=== PATIENT | male | born 1990 | race African-American/Black ===

== ENCOUNTER 2018-10-01 15:56 | Emergency (ER) | payer MEDICAID, OTHER ==
[~2018-10-01] VITALS: Ht 177.8 cm; Wt 104.3 kg
[2018-10-01 16:13] VITALS: BP 129/72
[2018-10-01] MEDS ORDERED: KETOROLAC TROMETH 60MG/2ML VIAL IM ONE (19:45)
[2018-10-01] MEDS ORDERED: methylPREDNISolone SOD SUCC 125 MG/2 ML VL IM ONE (19:45)
[2018-10-02] MEDS ORDERED: BUDESONIDE (INHALATION) 0.5 MG/2 ML NEB ONE (04:07)
[2018-10-02] MEDS ORDERED: ALBUTEROL SULF 2.5 MG/0.5ML(0.5%) NEB SOLN ONE (04:07)
== END 2018-10-01 20:58 | disposition home or self-care (01) ==
LOC: ER 16:00
DX: S43.402A Unspecified sprain of left shoulder joint, initial encounter (principal); X50.0XXA Overexertion from strenuous movement or load, initial encounter; Y93.61 Activity, american tackle football; Y92.219 Unspecified school as the place of occurrence of the external cause; Y99.8 Other external cause status
CPT/HCPCS: 96372; 99283; J1885; J2930; J7030

== ENCOUNTER 2021-01-27 23:58 | Inpatient (IN) | payer MEDICAID ==
[~2021-01-27] VITALS: Ht 172.7 cm; Wt 103.6 kg
[2021-01-28 03:40] LABS: Basophils # (auto) 0.1 10 ^3/uL (0-0.2); Basophils % (auto) 0.7 % (0.0-2.0); Eosinophils # (auto) 0.1 10 ^3/uL (0-0.8); Eosinophils % (auto) 0.8 % (0.0-7.0); Hematocrit 44.8 % (41.0-53.0); Hemoglobin 14.8 g/dL (13.5-17.5); Lymphocytes # (auto) 1.6 10 ^3/uL (0.4-5.4); Lymphocytes % (auto) 19.3 % (10.0-50.0); Mean Corpuscular Hemoglobin 28.3 pg (28.0-32.0); Mean Corpuscular Hgb Conc. 33.1 g/dL (32.0-36.0); Mean Corpuscular Volume 85.5 fL (80.0-100.0); Monocytes # (auto) 0.5 10 ^3/uL (0-1.3); Monocytes % (auto) 6.3 % (0.0-12.0); Neutrophils % (auto) 72.9 % (37.0-80.0); Nucleated Red Blood Cells % 0.1 %; Platelet Count (auto) 351 10^3/uL (140-450); Red Blood Cells 5.24 10^6/uL (4.5-5.90); Red Cell Distribution Width 14.2 % (11.8-14.3); White Blood Cell 8.2 10^3/uL (4.4-10.8)
[2021-01-28 03:55] LABS: Albumin 3.6 g/dL (3.4-5.0); Anion Gap 7 (5-15); Blood Urea Nitrogen 8 mg/dL (7-18); Calcium 8.5 mg/dL (8.5-10.1); Carbon Dioxide 24 mmol/L (21-32); Chloride 108 mmol/L (98-107); Glucose 103 mg/dL (74-106); Magnesium 2.2 mg/dL (1.6-2.6); Potassium 4.2 mmol/L (3.5-5.1); Sodium 139 mmol/L (136-145)
[2021-01-28 03:57] LABS: BUN/Creatinine Ratio 8.2; GFR African American 115 mL/min; GFR Non-African American 95 mL/min
[2021-01-28 04:02] LABS: Alanine Aminotransferase 36 U/L (16-61); Alkaline Phosphatase 70 U/L (45-117); Aspartate Aminotransferase 18 U/L (15-37); Bilirubin, Total 0.5 mg/dL (0.2-1.0); Total Protein 7.2 g/dL (6.4-8.2)
[2021-01-28] MEDS ORDERED: TETANUS-DIPTH-ACEL PERTUSSIS 0.5ML SYR Tdap IM ONE (04:30)
[2021-01-28] MEDS ORDERED: NITROGLYCERIN 0.4 MG SL TAB SL PRN (06:00)
[2021-01-28] MEDS ORDERED: ONDANSETRON HCL 4 MG/2 ML VIAL IV PRN (06:00)
[2021-01-28] MEDS ORDERED: LIDOCAINE 1% HCL (LOCAL ANESTH.) INJ 20ML MDV ID ONE (06:30)
[2021-01-28 09:54] VITALS: BP 168/93
[2021-01-28] MEDS: HYDROcodone-ACET 5/325MG TAB PO PRN ×3 (11:23→21:08)
[2021-01-28] MEDS: FAMOTIDINE 20 MG TAB PO SCH ×2 (11:23→21:07)
[2021-01-28 11:25] LABS: Amphetamine Screen, Urine NEGATIVE (NEGATIVE); Barbiturate Scree,Urine NEGATIVE (NEGATIVE); Benzodiazephine Screen, Urine NEGATIVE (NEGATIVE); Cannabinoid Screen, Urine POSITIVE (NEGATIVE); Cocaine Screen, Urine NEGATIVE (NEGATIVE)
[2021-01-28 11:35] LABS: Opiate Scree,Urine NEGATIVE (NEGATIVE); Phencyclidine Screen, Urine NEGATIVE (NEGATIVE)
[2021-01-28 13:07] VITALS: BP 132/76
[2021-01-28 16:22] VITALS: BP 123/70
[2021-01-28 22:00] VITALS: BP 104/68
[2021-01-28] MEDS ORDERED: LORazepam 2MG/ML-1ML VIAL IV PRN (22:00)
[2021-01-29] MEDS: HYDROcodone-ACET 5/325MG TAB PO PRN ×2 (04:44→15:08)
[2021-01-29 05:00] VITALS: BP 131/78
[2021-01-29 05:44] LABS: Basophils # (auto) 0 10 ^3/uL (0-0.2); Basophils % (auto) 0.6 % (0.0-2.0); Eosinophils # (auto) 0.1 10 ^3/uL (0-0.8); Eosinophils % (auto) 1.9 % (0.0-7.0); Hematocrit 46.8 % (41.0-53.0); Hemoglobin 15.8 g/dL (13.5-17.5); Lymphocytes # (auto) 2.2 10 ^3/uL (0.4-5.4); Lymphocytes % (auto) 38.3 % (10.0-50.0); Mean Corpuscular Hemoglobin 28.7 pg (28.0-32.0); Mean Corpuscular Hgb Conc. 33.8 g/dL (32.0-36.0); Monocytes # (auto) 0.5 10 ^3/uL (0-1.3); Monocytes % (auto) 9.4 % (0.0-12.0); Neutrophils # (auto) 2.9 10 ^3/uL (1.6-8.6); Neutrophils % (auto) 49.8 % (37.0-80.0); Nucleated Red Blood Cells % 0.1 %; Platelet Count (auto) 336 10^3/uL (140-450); Red Blood Cells 5.51 10^6/uL (4.5-5.90); Red Cell Distribution Width 13.9 % (11.8-14.3); White Blood Cell 5.8 10^3/uL (4.4-10.8)
[2021-01-29 06:02] LABS: Calcium 8.7 mg/dL (8.5-10.1); Potassium 3.9 mmol/L (3.5-5.1)
[2021-01-29] MEDS: MORPHINE SULF INJ 2 MG/ML SYRINGE 1ML IV PRN (08:25)
[2021-01-29 08:41] VITALS: BP 130/83
[2021-01-29] MEDS: FAMOTIDINE 20 MG TAB PO SCH ×2 (10:17→21:56)
[2021-01-29 16:46] VITALS: BP 125/76
[2021-01-29 22:00] VITALS: BP 150/75
[2021-01-30 05:00] VITALS: BP 127/69
[2021-01-30 09:00] VITALS: BP 134/75
[2021-01-30] MEDS: HYDROcodone-ACET 5/325MG TAB PO PRN ×3 (09:08→21:41)
[2021-01-30] MEDS: FAMOTIDINE 20 MG TAB PO SCH ×2 (09:08→21:41)
[2021-01-30] MEDS ORDERED: traMADol HCL 50 MG TAB PO PRN (09:15)
[2021-01-30 13:16] VITALS: BP 140/50
[2021-01-30 16:48] VITALS: BP 123/73
[2021-01-30 21:38] VITALS: BP 125/84
[2021-01-31] MEDS: MORPHINE SULF INJ 2 MG/ML SYRINGE 1ML IV PRN (05:35)
[2021-01-31 05:43] VITALS: BP 120/71
[2021-01-31 09:00] VITALS: BP 115/74
[2021-01-31] MEDS: FAMOTIDINE 20 MG TAB PO SCH ×2 (10:14→22:09)
[2021-01-31] MEDS: HYDROcodone-ACET 5/325MG TAB PO PRN ×2 (12:39→17:48)
[2021-01-31 12:50] VITALS: BP 126/81
[2021-01-31 17:00] VITALS: BP 133/77
[2021-01-31 21:16] VITALS: BP 111/73
[2021-02-01] MEDS: HYDROcodone-ACET 5/325MG TAB PO PRN ×2 (01:37→09:08)
[2021-02-01 04:59] VITALS: BP 121/71
[2021-02-01 08:50] VITALS: BP 120/85
[2021-02-01] MEDS: FAMOTIDINE 20 MG TAB PO SCH ×2 (09:08→21:33)
[2021-02-01] MEDS ORDERED: KETOROLAC TROMETH 30 MG/ML 1ML VIAL IV ONE (10:15)
[2021-02-01 13:00] VITALS: BP 128/74
[2021-02-01] MEDS: SODIUM CHLORIDE 0.9% 1,000 ML IV SCH (15:54)
[2021-02-01 16:55] VITALS: BP 123/71
[2021-02-01] MEDS: KETOROLAC TROMETH 30 MG/ML 1ML VIAL IV PRN (18:47)
[2021-02-01 22:00] VITALS: BP 130/79
[2021-02-01] MEDS: TEMAZEPAM 15 MG CAP PO PRN (22:18)
[2021-02-02] MEDS: SODIUM CHLORIDE 0.9% 1,000 ML IV SCH ×3 (01:48→21:44)
[2021-02-02 05:00] VITALS: BP 129/73
[2021-02-02 05:30] LABS: Basophils # (auto) 0 10 ^3/uL (0-0.2); Basophils % (auto) 0.7 % (0.0-2.0); Eosinophils # (auto) 0.1 10 ^3/uL (0-0.8); Eosinophils % (auto) 2.5 % (0.0-7.0); Hematocrit 43.7 % (41.0-53.0); Hemoglobin 15.2 g/dL (13.5-17.5); Lymphocytes % (auto) 37.1 % (10.0-50.0); Mean Corpuscular Hemoglobin 29.4 pg (28.0-32.0); Mean Corpuscular Hgb Conc. 34.8 g/dL (32.0-36.0); Mean Corpuscular Volume 84.7 fL (80.0-100.0); Monocytes # (auto) 0.6 10 ^3/uL (0-1.3); Monocytes % (auto) 10.5 % (0.0-12.0); Neutrophils # (auto) 2.6 10 ^3/uL (1.6-8.6); Neutrophils % (auto) 49.2 % (37.0-80.0); Nucleated Red Blood Cells % 0.1 %; Platelet Count (auto) 315 10^3/uL (140-450); Red Blood Cells 5.16 10^6/uL (4.5-5.90); Red Cell Distribution Width 13.4 % (11.8-14.3); White Blood Cell 5.4 10^3/uL (4.4-10.8)
[2021-02-02 05:39] LABS: INR 1.07 (0.9-1.15)
[2021-02-02 05:51] LABS: Potassium 4.2 mmol/L (3.5-5.1)
[2021-02-02 05:57] LABS: Albumin 3.3 g/dL (3.4-5.0); BUN/Creatinine Ratio 13.6; Bilirubin, Total 0.4 mg/dL (0.2-1.0); Calcium 8.6 mg/dL (8.5-10.1); Total Protein 6.7 g/dL (6.4-8.2)
[2021-02-02] MEDS ORDERED: MIDAZOLAM HCL 1MG/1ML-2 ML VIAL ONE ×2 (07:22→12:55)
[2021-02-02] MEDS ORDERED: fentaNYL CITRATE 100 MCG/2 ML VL ONE ×2 (07:22→12:55)
[2021-02-02] MEDS ORDERED: LIDOCAINE 2%HCL (LOCAL ANESTH.) INJ 20ML MDV ONE ×2 (07:23→12:33)
[2021-02-02] MEDS: FAMOTIDINE 20 MG TAB PO SCH ×2 (09:28→21:44)
[2021-02-02] MEDS: KETOROLAC TROMETH 30 MG/ML 1ML VIAL IV PRN ×2 (12:01→18:04)
[2021-02-02 13:00] VITALS: BP 121/78
[2021-02-02] MEDS ORDERED: ceFAZolin 1GM/50ML 50 ML IV ONE ×2 (14:00→14:03)
[2021-02-02 16:52] VITALS: BP 129/81
[2021-02-02 22:00] VITALS: BP 119/65
[2021-02-03] MEDS: KETOROLAC TROMETH 30 MG/ML 1ML VIAL IV PRN ×2 (01:50→08:16)
[2021-02-03] MEDS: TEMAZEPAM 15 MG CAP PO PRN (01:56)
[2021-02-03 05:17] VITALS: BP 144/66
[2021-02-03] MEDS: SODIUM CHLORIDE 0.9% 1,000 ML IV SCH (07:45)
[2021-02-03] MEDS: FAMOTIDINE 20 MG TAB PO SCH (08:16)
[2021-02-03 09:00] VITALS: BP 122/81
== END 2021-02-03 13:25 | disposition home or self-care (01) | DRG 201 ==
LOC: EDBD 23:58 → ER 01-28 00:01 → TELE 01-28 05:58 → TELE-WESTW 01-28 11:41
PROVIDERS: ADMIT Nurse Practitioner; ATTEND Family Medicine
PROC: 4A0234Z Measurement of Cardiac Electrical Activity, Percutaneous Approach (ICD-10-PCS; principal; 2021-02-03)
PROC: 0JH632Z Insertion of Monitoring Device into Chest Subcutaneous Tissue and Fascia, Percutaneous Approach (ICD-10-PCS; 2021-02-03)
DX: I49.9 Cardiac arrhythmia, unspecified (principal); R56.9 Unspecified convulsions; S40.011A Contusion of right shoulder, initial encounter; I44.1 Atrioventricular block, second degree; S01.511A Laceration without foreign body of lip, initial encounter; E66.9 Obesity, unspecified; F12.90 Cannabis use, unspecified, uncomplicated; Z20.822 Contact with and (suspected) exposure to COVID-19; W10.9XXA Fall (on) (from) unspecified stairs and steps, initial encounter; F32.9 Major depressive disorder, single episode, unspecified; I10 Essential (primary) hypertension; Z82.3 Family history of stroke; Z82.49 Family history of ischemic heart disease and other diseases of the circulatory system; Z83.3 Family history of diabetes mellitus; Z79.899 Other long term (current) drug therapy; Z79.891 Long term (current) use of opiate analgesic; Z79.01 Long term (current) use of anticoagulants; Y93.89 Activity, other specified; Y92.89 Other specified places as the place of occurrence of the external cause; Y99.8 Other external cause status; Z68.34 Body mass index [BMI] 34.0-34.9, adult
CPT/HCPCS: 36415; 70450; 70551; 71045; 72125; 73030; 80048; 80053; 80307; 83735; 84443; 84484; 85025; 85610; 86850; 86900; 86901; 87426; 90471; 90715; 93005; 93017; 93306; 93886; 95819; 99152; 99153; G0378; J0690; J1885; J2250

== ENCOUNTER 2021-06-27 18:19 | Inpatient (IN) | payer MEDICAID, OTHER ==
[~2021-06-27] VITALS: Ht 172.7 cm; Wt 102.1 kg
[2021-06-27] MEDS ORDERED: ASPirin 81 mg TAB PO ONE (18:30)
[2021-06-27] MEDS ORDERED: MORPHINE SULFATE 4 MG/ML SYR/VIAL IV ONE (18:30)
[2021-06-27 19:00] LABS: Basophils # (auto) 0 10 ^3/uL (0-0.2); Basophils % (auto) 0.6 % (0.0-2.0); Eosinophils # (auto) 0 10 ^3/uL (0-0.8); Eosinophils % (auto) 1.2 % (0.0-7.0); Hematocrit 45.6 % (41.0-53.0); Mean Corpuscular Hemoglobin 27.4 pg (28.0-32.0); Mean Corpuscular Hgb Conc. 32.9 g/dL (32.0-36.0); Mean Corpuscular Volume 83.3 fL (80.0-100.0); Monocytes # (auto) 0.4 10 ^3/uL (0-1.3); Monocytes % (auto) 9.8 % (0.0-12.0); Neutrophils # (auto) 1.7 10 ^3/uL (1.6-8.6); Neutrophils % (auto) 40.4 % (37.0-80.0); Nucleated Red Blood Cells % 0.3 %; Red Blood Cells 5.48 10^6/uL (4.5-5.90); Red Cell Distribution Width 13.6 % (11.8-14.3); White Blood Cell 4.1 10^3/uL (4.4-10.8)
[2021-06-27 19:15] LABS: INR 1.07 (0.9-1.15); Partial Thromboplastin Time 30.3 sec (23.6-33.0)
[2021-06-27 19:20] LABS: Albumin 3.5 g/dL (3.4-5.0); Anion Gap 4 (5-15); Blood Urea Nitrogen 10 mg/dL (7-18); Calcium 8.7 mg/dL (8.5-10.1); Carbon Dioxide 24 mmol/L (21-32); Chloride 111 mmol/L (98-107); Glucose 116 mg/dL (74-106); Magnesium 2.4 mg/dL (1.6-2.6); Potassium 4.1 mmol/L (3.5-5.1); Sodium 139 mmol/L (136-145)
[2021-06-27 19:22] LABS: Alanine Aminotransferase 23 U/L (16-61); Aspartate Aminotransferase 14 U/L (15-37); GFR African American 111 mL/min; GFR Non-African American 91 mL/min
[2021-06-27 19:27] LABS: Alkaline Phosphatase 66 U/L (45-117); Bilirubin, Total 0.8 mg/dL (0.2-1.0)
[2021-06-27] MEDS ORDERED: DOCUSATE SOD 100 MG CAP PO PRN (21:30)
[2021-06-27] MEDS ORDERED: HYDROcodone-ACET 5/325MG TAB PO PRN (21:30)
[2021-06-27] MEDS ORDERED: MORPHINE SULFATE 4 MG/ML SYR/VIAL IV PRN (21:30)
[2021-06-27] MEDS ORDERED: ONDANSETRON HCL 4 MG/2 ML VIAL IV PRN (21:30)
[2021-06-27] MEDS ORDERED: ACETAMINOPHEN 325 MG TAB PO PRN (21:30)
[2021-06-28] MEDS ORDERED: MORPHINE SULFATE INJECTION 2 MG/ML SYRG IV PRN (01:45)
[2021-06-28] MEDS ORDERED: NITROGLYCERIN 0.4 MG SL TAB SL PRN (01:45)
[2021-06-28 07:11] LABS: Albumin 3.5 g/dL (3.4-5.0); Calcium 8.6 mg/dL (8.5-10.1); Potassium 4.1 mmol/L (3.5-5.1)
[2021-06-28 07:15] LABS: Hematocrit 43.3 % (41.0-53.0); Hemoglobin 14.6 g/dL (13.5-17.5); Mean Corpuscular Hemoglobin 28.3 pg (28.0-32.0); Mean Corpuscular Hgb Conc. 33.8 g/dL (32.0-36.0); Mean Corpuscular Volume 83.9 fL (80.0-100.0); Red Blood Cells 5.15 10^6/uL (4.5-5.90); Red Cell Distribution Width 13.5 % (11.8-14.3); White Blood Cell 3.9 10^3/uL (4.4-10.8)
[2021-06-28 07:16] LABS: BUN/Creatinine Ratio 12.6; Bilirubin, Total 0.8 mg/dL (0.2-1.0); Total Protein 6.8 g/dL (6.4-8.2)
[2021-06-28 07:21] LABS: Basophils % (manual) 0 (0.0-2.0); Blast Cells 0; Metamyelocytes % 0; Myelocytes % 0; Promyelocytes % 0
[2021-06-28] MEDS ORDERED: NITROGLYCERIN 0.4 MG SL TAB SL ONE (10:00)
[2021-06-28] MEDS ORDERED: ASPirin 81 mg TAB PO SCH (10:00)
[2021-06-28] MEDS ORDERED: FAMOTIDINE (10MG/ML) 2ML VL IV SCH (10:00)
[2021-06-28 11:38] LABS: Band Neutrophils % (manual) 2; Eosinophils % (manual) 2 (0-7); Lymphocytes % (manual) 49 (10.0-50.0); Monocytes % (manual) 10 (0-12); Reactive Lymphocytes 5
[2021-06-28] MEDS ORDERED: AMIT1TAB35 PO (14:13)
[2021-06-28 15:57] VITALS: BP 133/70
[2021-06-29] MEDS ORDERED: ENOXAPARIN SOD 40 MG/0.4 ML SYRINGE SC SCH (10:00)
[2021-06-29] MEDS ORDERED: FONDAPARINUX SOD 2.5mg/0.5ml SYRINGE SC SCH (10:00)
== END 2021-06-28 17:47 | disposition left against medical advice (07) | DRG 201 ==
LOC: ER 18:21 → TELE 06-28 01:42
PROVIDERS: ADMIT Nurse Practitioner Family; ATTEND Hospitalist
DX: I49.5 Sick sinus syndrome (principal); I21.A1 Myocardial infarction type 2; Z53.29 Procedure and treatment not carried out because of patient's decision for other reasons; Z82.49 Family history of ischemic heart disease and other diseases of the circulatory system; Z83.3 Family history of diabetes mellitus; Z20.822 Contact with and (suspected) exposure to COVID-19; Z91.018 Allergy to other foods
CPT/HCPCS: 36415; 71046; 80053; 80061; 83735; 83880; 84443; 84484; 85007; 85025; 85027; 85379; 85610; 85730; 87426; 93005; 96374; 96375; 96376; G0378; J2405; J3490

== ENCOUNTER 2021-07-09 07:57 | Emergency (ER) | payer MEDICAID ==
[~2021-07-09] VITALS: Ht 172.7 cm; Wt 104.3 kg
[~2021-07-09 07:57] MED LIST: AMIT1TAB35 PO
[2021-07-09 08:29] LABS: Basophils # (auto) 0 10 ^3/uL (0-0.2); Basophils % (auto) 0.9 % (0.0-2.0); Eosinophils # (auto) 0.1 10 ^3/uL (0-0.8); Eosinophils % (auto) 2.1 % (0.0-7.0); Hematocrit 43.9 % (41.0-53.0); Hemoglobin 14.5 g/dL (13.5-17.5); Lymphocytes # (auto) 1.5 10 ^3/uL (0.4-5.4); Lymphocytes % (auto) 35.5 % (10.0-50.0); Mean Corpuscular Hemoglobin 27.9 pg (28.0-32.0); Mean Corpuscular Volume 84.5 fL (80.0-100.0); Monocytes # (auto) 0.3 10 ^3/uL (0-1.3); Monocytes % (auto) 7.2 % (0.0-12.0); Neutrophils # (auto) 2.4 10 ^3/uL (1.6-8.6); Neutrophils % (auto) 54.3 % (37.0-80.0); Nucleated Red Blood Cells % 0.1 %; Red Blood Cells 5.19 10^6/uL (4.5-5.90); Red Cell Distribution Width 14.1 % (11.8-14.3); White Blood Cell 4.4 10^3/uL (4.4-10.8)
[2021-07-09] MEDS ORDERED: ASPirin 81 mg TAB PO ONE (08:30)
[2021-07-09 08:46] LABS: Albumin 3.3 g/dL (3.4-5.0); Anion Gap 7 (5-15); Blood Urea Nitrogen 7 mg/dL (7-18); Calcium 8.4 mg/dL (8.5-10.1); Carbon Dioxide 24 mmol/L (21-32); Chloride 111 mmol/L (98-107); Glucose 105 mg/dL (74-106); Potassium 4.3 mmol/L (3.5-5.1); Sodium 142 mmol/L (136-145)
[2021-07-09 08:48] LABS: Alanine Aminotransferase 87 U/L (16-61); Aspartate Aminotransferase 35 U/L (15-37); BUN/Creatinine Ratio 6.7; GFR African American 106 mL/min; GFR Non-African American 87 mL/min
[2021-07-09 08:53] LABS: Alkaline Phosphatase 61 U/L (45-117); Bilirubin, Total 0.3 mg/dL (0.2-1.0); Total Protein 6.9 g/dL (6.4-8.2)
[2021-07-09 10:14] LABS: Amphetamine Screen, Urine NEGATIVE (NEGATIVE); Barbiturate Scree,Urine NEGATIVE (NEGATIVE); Benzodiazephine Screen, Urine NEGATIVE (NEGATIVE); Cannabinoid Screen, Urine POSITIVE (NEGATIVE); Cocaine Screen, Urine NEGATIVE (NEGATIVE); Opiate Scree,Urine NEGATIVE (NEGATIVE); Phencyclidine Screen, Urine NEGATIVE (NEGATIVE)
[2021-07-09 12:35] VITALS: BP 139/83
== END 2021-07-09 12:40 | disposition home or self-care (01) ==
LOC: ER 07:57
DX: R07.89 Other chest pain (principal); E46 Unspecified protein-calorie malnutrition; Z68.35 Body mass index [BMI] 35.0-35.9, adult; Z79.899 Other long term (current) drug therapy; Z91.018 Allergy to other foods
CPT/HCPCS: 36415; 71046; 80053; 80307; 83735; 84484; 85025; 93005

== ENCOUNTER 2021-09-14 08:51 | Emergency (ER) | payer MEDICAID ==
[~2021-09-14] VITALS: Ht 172.7 cm; Wt 104.3 kg
[2021-09-14 09:26] LABS: Basophils # (auto) 0 10 ^3/uL (0-0.2); Basophils % (auto) 1.3 % (0.0-2.0); Eosinophils # (auto) 0.1 10 ^3/uL (0-0.8); Eosinophils % (auto) 1.7 % (0.0-7.0); Hematocrit 45.2 % (41.0-53.0); Hemoglobin 15.2 g/dL (13.5-17.5); Lymphocytes # (auto) 1.6 10 ^3/uL (0.4-5.4); Lymphocytes % (auto) 53.2 % (10.0-50.0); Mean Corpuscular Hemoglobin 28.1 pg (28.0-32.0); Mean Corpuscular Hgb Conc. 33.7 g/dL (32.0-36.0); Mean Corpuscular Volume 83.6 fL (80.0-100.0); Monocytes # (auto) 0.3 10 ^3/uL (0-1.3); Monocytes % (auto) 8.3 % (0.0-12.0); Neutrophils # (auto) 1.1 10 ^3/uL (1.6-8.6); Neutrophils % (auto) 35.5 % (37.0-80.0); Nucleated Red Blood Cells % 0.3 %; Red Cell Distribution Width 13.4 % (11.8-14.3); White Blood Cell 3.1 10^3/uL (4.4-10.8)
[2021-09-14] MEDS ORDERED: ASPirin 81 mg TAB PO ONE (09:30)
[2021-09-14 09:50] LABS: Albumin 3.9 g/dL (3.4-5.0); Calcium 8.7 mg/dL (8.5-10.1); Potassium 4.5 mmol/L (3.5-5.1)
[2021-09-14 09:55] LABS: BUN/Creatinine Ratio 8.1; Bilirubin, Total 0.4 mg/dL (0.2-1.0); Total Protein 7.6 g/dL (6.4-8.2)
[2021-09-14 10:22] VITALS: BP 112/88
== END 2021-09-14 10:46 | disposition home or self-care (01) ==
LOC: ER 08:51
DX: R07.89 Other chest pain (principal)
CPT/HCPCS: 36415; 71046; 80053; 84484; 85025; 93005

== ENCOUNTER 2022-02-09 07:33 | Emergency (ER) | payer MEDICAID ==
[~2022-02-09] VITALS: Ht 182.9 cm; Wt 99.8 kg
[2022-02-09 10:32] LABS: Basophils # (auto) 0 10 ^3/uL (0-0.2); Basophils % (auto) 0.6 % (0.0-2.0); Eosinophils # (auto) 0.1 10 ^3/uL (0-0.8); Eosinophils % (auto) 1.3 % (0.0-7.0); Hematocrit 46.4 % (41.0-53.0); Hemoglobin 15.2 g/dL (13.5-17.5); Lymphocytes # (auto) 1.6 10 ^3/uL (0.4-5.4); Lymphocytes % (auto) 32.2 % (10.0-50.0); Mean Corpuscular Hgb Conc. 32.7 g/dL (32.0-36.0); Mean Corpuscular Volume 85.5 fL (80.0-100.0); Monocytes # (auto) 0.5 10 ^3/uL (0-1.3); Monocytes % (auto) 9.5 % (0.0-12.0); Neutrophils # (auto) 2.8 10 ^3/uL (1.6-8.6); Neutrophils % (auto) 56.4 % (37.0-80.0); Nucleated Red Blood Cells % 0.1 %; Red Blood Cells 5.43 10^6/uL (4.5-5.90); Red Cell Distribution Width 14.9 % (11.8-14.3)
[2022-02-09 10:43] LABS: Albumin 3.5 g/dL (3.4-5.0); Calcium 9.1 mg/dL (8.5-10.1); Magnesium 2.6 mg/dL (1.6-2.6); Potassium 4.3 mmol/L (3.5-5.1)
[2022-02-09 10:48] LABS: BUN/Creatinine Ratio 10.2; Bilirubin, Total 0.7 mg/dL (0.2-1.0); Total Protein 7.2 g/dL (6.4-8.2)
[2022-02-09 11:55] VITALS: BP 137/80
[2022-02-09] MEDS ORDERED: NAP500T PO (12:58)
[2022-02-09] MEDS ORDERED: KETOROLAC TROMETH 30 MG/ML 1ML VIAL IV ONE (13:00)
== END 2022-02-09 12:48 | disposition home or self-care (01) ==
LOC: ER 07:33 → EDBD 07:33 → ER 12:48
DX: R07.89 Other chest pain (principal); Z86.74 Personal history of sudden cardiac arrest
CPT/HCPCS: 36415; 71045; 80053; 83735; 83880; 84484; 85025; 93005; 96374; 99284; J1885

== ENCOUNTER 2022-05-17 08:47 | Inpatient (IN) | payer MEDICAID ==
[~2022-05-17] VITALS: Ht 175.3 cm; Wt 105.1 kg
[~2022-05-17 08:47] MED LIST changes: +NAP500T PO
[2022-05-17 10:00] LABS: Basophils # (auto) 0 10 ^3/uL (0-0.2); Basophils % (auto) 0.9 % (0.0-2.0); Eosinophils # (auto) 0.1 10 ^3/uL (0-0.8); Eosinophils % (auto) 1.5 % (0.0-7.0); Hemoglobin 15.1 g/dL (13.5-17.5); Lymphocytes # (auto) 1.3 10 ^3/uL (0.4-5.4); Lymphocytes % (auto) 27.7 % (10.0-50.0); Mean Corpuscular Hgb Conc. 31.5 g/dL (32.0-36.0); Mean Corpuscular Volume 85.5 fL (80.0-100.0); Monocytes # (auto) 0.5 10 ^3/uL (0-1.3); Monocytes % (auto) 10.1 % (0.0-12.0); Neutrophils # (auto) 2.8 10 ^3/uL (1.6-8.6); Neutrophils % (auto) 59.8 % (37.0-80.0); Nucleated Red Blood Cells % 0.1 %; Red Blood Cells 5.61 10^6/uL (4.5-5.90); Red Cell Distribution Width 14.2 % (11.8-14.3); White Blood Cell 4.7 10^3/uL (4.4-10.8)
[2022-05-17 10:08] LABS: Albumin 3.9 g/dL (3.4-5.0); Calcium 9.4 mg/dL (8.5-10.1); Potassium 4.5 mmol/L (3.5-5.1)
[2022-05-17 10:14] LABS: BUN/Creatinine Ratio 9.8; Bilirubin, Total 0.8 mg/dL (0.2-1.0)
[2022-05-17] MEDS ORDERED: ASPirin 81 mg TAB PO ONE (14:00)
[2022-05-17] MEDS ORDERED: HYDROcodone-ACET 5/325MG TAB PO PRN (15:15)
[2022-05-17] MEDS ORDERED: ACETAMINOPHEN 325 MG TAB PO PRN (15:15)
[2022-05-17] MEDS ORDERED: DOCUSATE SOD 100 MG CAP PO PRN (15:15)
[2022-05-17] MEDS: SODIUM CHLORIDE 0.9% 1,000 ML IV SCH (15:55)
[2022-05-17] MEDS: MORPHINE SULFATE INJ 2 MG/ml SYRG IV PRN ×2 (15:56→22:50)
[2022-05-17] MEDS ORDERED: MIDAZOLAM HCL 2MG/2ML 2ml VIAL (1mg/ml) IV PRN (20:45)
[2022-05-17 21:11] LABS: Cholesterol 182 mg/dL (< 200); HDL Cholesterol 50 mg/dL (40-59); LDL Cholesterol 120 mg/dL (< 100); Triglycerides 149 mg/dL (< 150)
[2022-05-17 22:02] VITALS: BP 131/72
[2022-05-17 22:02] LABS: Urine Bacteria NONE SEEN /hpf (None Seen); Urine Blood Negative /uL (Negative); Urine Mucus FEW (None Seen); Urine Specific Gravity 1.024 (1.001-1.035); Urine WBC 1 /hpf (0 - 3)
[2022-05-17 22:10] VITALS: BP 131/72
[2022-05-17] MEDS: ATORVASTATIN 20 MG TAB PO SCH (22:36)
[2022-05-17] MEDS: ONDANSETRON HCL 4 MG/2 ML VIAL IV PRN (22:50)
[2022-05-18] MEDS: MORPHINE SULFATE INJ 2 MG/ml SYRG IV PRN ×4 (04:32→22:50)
[2022-05-18] MEDS: ONDANSETRON HCL 4 MG/2 ML VIAL IV PRN ×4 (04:32→22:47)
[2022-05-18 05:00] VITALS: BP 132/74
[2022-05-18 07:18] LABS: Basophils # (auto) 0 10 ^3/uL (0-0.2); Basophils % (auto) 0.5 % (0.0-2.0); Eosinophils # (auto) 0 10 ^3/uL (0-0.8); Eosinophils % (auto) 0.7 % (0.0-7.0); Hematocrit 45.4 % (41.0-53.0); Hemoglobin 15.1 g/dL (13.5-17.5); Lymphocytes # (auto) 0.8 10 ^3/uL (0.4-5.4); Lymphocytes % (auto) 17.1 % (10.0-50.0); Mean Corpuscular Hemoglobin 28.1 pg (28.0-32.0); Mean Corpuscular Hgb Conc. 33.2 g/dL (32.0-36.0); Mean Corpuscular Volume 84.5 fL (80.0-100.0); Monocytes # (auto) 0.5 10 ^3/uL (0-1.3); Monocytes % (auto) 10.2 % (0.0-12.0); Neutrophils # (auto) 3.6 10 ^3/uL (1.6-8.6); Neutrophils % (auto) 71.5 % (37.0-80.0); Nucleated Red Blood Cells % 0.1 %; Red Blood Cells 5.38 10^6/uL (4.5-5.90); Red Cell Distribution Width 13.9 % (11.8-14.3)
[2022-05-18 07:29] LABS: Albumin 3.7 g/dL (3.4-5.0); Calcium 8.8 mg/dL (8.5-10.1); Potassium 4.3 mmol/L (3.5-5.1)
[2022-05-18 07:31] LABS: BUN/Creatinine Ratio 9.3
[2022-05-18 07:34] LABS: Bilirubin, Total 0.8 mg/dL (0.2-1.0); Total Protein 7.3 g/dL (6.4-8.2)
[2022-05-18 09:00] VITALS: BP 136/74
[2022-05-18] MEDS: ASPirin 81 mg TAB PO SCH (09:53)
[2022-05-18] MEDS: SODIUM CHLORIDE 0.9% 1,000 ML IV SCH (09:58)
[2022-05-18] MEDS ORDERED: ENOXAPARIN SOD 40 MG/0.4 ML SYRINGE SC SCH (10:00)
[2022-05-18 13:00] VITALS: BP 164/80
[2022-05-18 17:00] VITALS: BP 141/80
[2022-05-18 21:56] VITALS: BP 134/71
[2022-05-18] MEDS: ATORVASTATIN 20 MG TAB PO SCH (21:59)
[2022-05-19] MEDS: SODIUM CHLORIDE 0.9% 1,000 ML IV SCH (00:50)
[2022-05-19 04:48] VITALS: BP 147/81
[2022-05-19] MEDS: ASPirin 81 mg TAB PO SCH (08:47)
[2022-05-19] MEDS: ONDANSETRON HCL 4 MG/2 ML VIAL IV PRN (08:47)
[2022-05-19] MEDS: MORPHINE SULFATE INJ 2 MG/ml SYRG IV PRN (08:48)
[2022-05-19 09:00] VITALS: BP 138/81
[2022-05-19 09:18] VITALS: BP 138/81
== END 2022-05-19 11:14 | disposition left against medical advice (07) | DRG 58 ==
LOC: ER 08:47 → TELE 15:05 → TELE-WESTW 22:02
PROVIDERS: ADMIT Internal Medicine; ATTEND Family Medicine
DX: R20.2 Paresthesia of skin (principal); E66.9 Obesity, unspecified; R00.1 Bradycardia, unspecified; F12.10 Cannabis abuse, uncomplicated; R55 Syncope and collapse; I25.10 Atherosclerotic heart disease of native coronary artery without angina pectoris; G43.909 Migraine, unspecified, not intractable, without status migrainosus; R07.89 Other chest pain; Z20.822 Contact with and (suspected) exposure to COVID-19; R20.0 Anesthesia of skin; R73.03 Prediabetes; Z53.29 Procedure and treatment not carried out because of patient's decision for other reasons; Z83.3 Family history of diabetes mellitus; Z71.51 Drug abuse counseling and surveillance of drug abuser; Z79.82 Long term (current) use of aspirin; Z79.899 Other long term (current) drug therapy; Z82.3 Family history of stroke; Z82.49 Family history of ischemic heart disease and other diseases of the circulatory system; Z95.5 Presence of coronary angioplasty implant and graft; Z91.018 Allergy to other foods; Z68.34 Body mass index [BMI] 34.0-34.9, adult
CPT/HCPCS: 36415; 70551; 71045; 80053; 80061; 81001; 83735; 83880; 84484; 85025; 85379; 93005; 93306; 93886; 96360; G0378; J2405